=== PATIENT | female | born 2000 | race Caucasian/White ===

== ENCOUNTER 2021-04-22 09:29 | Emergency (ER) | payer OTHER ==
[~2021-04-22] VITALS: Ht 170.2 cm; Wt 72.7 kg
[2021-04-22 09:39] VITALS: TEMP 98.4
[2021-04-22 10:27] LABS: COLLECTION METHOD CLEAN CATCH
[2021-04-22 10:34] LABS: BASO # 0.1 K/mm3 (0.0-0.2); BASO % 0.3 % (0.0-2.0); EOS % 0.2 % (0.0-4.0); GRAN # 12.8 K/mm3 (1.4-6.5); GRAN % 79.9 % (42.2-75.2); HEMATOCRIT 40.8 % (35.0-45.0); HEMOGLOBIN 14.1 g/dl (12.0-15.0); LYMPH # 1.9 K/mm3 (1.2-3.4); MEAN CELL VOLUME 90 fl (80.0-95.0); MEAN CORPUSCULAR HEMOGLOBIN 31 pg (26-32); MEAN CORPUSCULAR HGB CONC 35 g/dl (33.0-37.0); MEAN PLATELET VOLUME 11.8 fl (7.4-10.4); MONO # 1.2 K/mm3 (0.1-0.6); MONO % 7.2 % (1.7-9.3); PLATELET COUNT 332 K/mm3 (130-400); RED BLOOD COUNT 4.52 M/mm3 (4.10-5.30); REDCELL DISTRIBUTION WIDTH-CV 12.1 % (11.5-14.5)
[2021-04-22 10:42] LABS: ALBUMIN 4.6 gm/dL (3.5-5.0); BILIRUBIN,TOTAL 0.7 mg/dL (0.2-1.2); C-REACTIVE PROTEIN 0.11 mg/dL (0.00-0.50); CALCIUM 9.5 mg/dL (8.4-10.2); CREATININE, serum 1.22 mg/dL (0.57-1.11); POTASSIUM 3.4 mmol/L (3.5-4.5)
[2021-04-22 10:53] LABS: MUCOUS Present (NOT PRESENT); PH 6 (5-8); URINE APPEARANCE Cloudy (CLEAR/HAZY); URINE BACTERIA Rare (NONE SEEN); URINE BILIRUBIN Negative (NEGATIVE); URINE BLOOD 3+ (NEGATIVE); URINE CALCIUM OXALATE CRYSTAL Present (NOT PRESENT); URINE COLOR Yellow (YELLOW); URINE GLUCOSE Negative (NEGATIVE); URINE KETONE Negative (NEGATIVE); URINE LEUKOCYTE ESTERASE Negative (NEGATIVE); URINE NITRATE Negative (NEGATIVE); URINE PROTEIN(semi-quant) 2+ (NEGATIVE); URINE RBC >50 /hpf (0-2); URINE UROBILINOGEN Negative (NEGATIVE)
[2021-04-22] MEDS ORDERED: NORCO 325 MG-51 TAB PO (12:05)
[2021-04-22] MEDS ORDERED: ZOFRAN ODT4 MG PO (12:05)
[2021-04-22 12:09] VITALS: BP 99/62; PULSE 50
== END 2021-04-22 12:19 | disposition home or self-care (01) ==
LOC: COL.ER 09:29
PROVIDERS: Nurse Practitioner Primary Care
DX: N20.2 Calculus of kidney with calculus of ureter (principal); Z32.02 Encounter for pregnancy test, result negative
CPT/HCPCS: J1885; J2270; J2405; J2550; J7030; Q9967

== ENCOUNTER 2021-05-15 13:32 | Day surgery (SDC) | payer OTHER ==
[2021-05-15] VITALS (10 sets, daily range): BP systolic 99–124; BP diastolic 56–84; PULSE 67–90; TEMP 97.8–98.2
[~2021-05-15] VITALS: Ht 170.2 cm; Wt 71.0 kg
[~2021-05-15 13:32] MED LIST: NORCO 325 MG-51 TAB PO; ZOFRAN ODT4 MG PO
[2021-05-15] MEDS ORDERED: BACTRIM DS 8001 TAB PO (14:12)
--- NOTE | 2021-05-15 16:05 | NUR ---
The patient was taken back to the operating room at this time. The patient's chart was sent with her. The patient's mother is going to wait in the room while the patient is in surgery.
--- NOTE | 2021-05-15 22:20 | NUR ---
1740 Report received from Mary POULTRY SEXER. 174 Pt transported from PACU to [facility] via cart and this RN assist. Pt alert and oriented and states no nausea, but pain is present. Pt needs to use the restroom upon arriving to [facility]. Pt ambulates with this RN assist to restroom. Pt voids and returns with this RN assist to [facility] without complications. Pt's mom present in room. 1750 Upon returning to [facility], pt states sharp pain in her bladder area and right abdomen. Pt grimacing due to pain and rating pain at 7 out [address] 10. [address] Dr[address] Archuleta present in room to visit with pt and pt's mom. Solutions sought for pain relief. Dr. Archuleta orders Farwell 5 for pt. 1809 Farwell 5 given to pt with ice water. 1839 Pt needs to use the restroom again. Pt states her pain is the same as before, and she doesn't notice any change since taking the Farwell 5. Pt states that pressure on her bladder and right front abdomen helps the pain lessen. Pt ambulates to restroom with RN assist without complications. 1854 Pt continues to be at same level of pain. Dr. Archuleta called, and he orders Morphine 2 mg IV q 1 hr PRN and states that the pt needs to continue drinking plenty of water and voiding as well. Pt does these. Dr. Archuleta also states that the pt may need to stay until about midnight to allow this to settle down. Pt informed and voices understanding. 1916 Pt given Morphine 2 mg. Pt rating pain at 5 out of 10. 1999 Pt resting. Mom remains in room. 2014 Pt continues rating pain at 5/10 and rests. Hand-off report given to IVETTE Hernandez, until this RN returns. 2024 Pt ambulates to restroom with RN assist without complications. Pt voids and returns to [facility]. 2039 Pt resting. 2099 Morphine 2 mg given again. Pt states it "makes me sleepy." Pt continues to rate pain at 5/10. 2124 This RN returns and receives report from IVETTE Hernandez. 2134 Dr. Archuleta called and asked if the results we're seeing are the results he was expecting. He states "no" and asks if the pt and mom would prefer being at home and managing this there with pain medicines they have at home. This RN will ask pt and pt's mom. 2145 Pt and Mom very fine with going home, resting, and continuing the pain medicine. 2205 Discharge information given to pt and pt's mom. Extensive directions given and questions answered to their satisfaction. Handed to them are a thank you card and discharge information. 2220 Pt transferred out of hospital via wheelchair and this RN assist, to private vehicle driven by pt's mom.
== END 2021-05-15 22:20 ==
LOC: SDCO 13:32
DX: N20.1 Calculus of ureter (principal); N30.00 Acute cystitis without hematuria; Z79.899 Other long term (current) drug therapy
CPT/HCPCS: C1769; J0690; J1100; J1170; J1885; J1940; J2270; J2405; J2704; J3010; J7120; Q9967